=== PATIENT | female | born 1985 | race Caucasian/White ===

== ENCOUNTER 2018-02-20 22:20 | Observation (INO) | payer MEDICAID | END 2018-02-20 23:59 | disposition home or self-care (01) | LOC: SPU 22:20 | PROVIDERS: ADMIT Obstetrics & Gynecology; ATTEND Obstetrics & Gynecology | DX: O99.89 Other specified diseases and conditions complicating pregnancy, childbirth and the puerperium (principal); M54.5 Low back pain; Z3A.27 27 weeks gestation of pregnancy | CPT/HCPCS: 81002-TC; G0378 ==